=== PATIENT | female | born 1990 | race African-American/Black ===

== ENCOUNTER 2023-02-19 07:57 | Day surgery (SDC) | payer BC ==
[~2023-02-19] VITALS: Ht 167.6 cm; Wt 164.3 kg
[2023-02-19 08:17] VITALS: BP 123/85; PULSE 81; TEMP 97.1
[2023-02-19] MEDS ORDERED: SAXENDA6 MG/ML SQ (08:28)
[2023-02-19] MEDS ORDERED: ELIQUIS 5MG PO (08:29)
[2023-02-19] MEDS ORDERED: PRILOSEC 20MG20 MG PO (08:29)
[2023-02-19 09:45] VITALS: BP 118/93; PULSE 82; TEMP 97.4
[2023-02-19 10:00] VITALS: BP 100/84; PULSE 77
[2023-02-19 10:15] VITALS: BP 110/76; PULSE 75
--- NOTE | 2023-02-19 12:00 | NUR ---
0945: PATIENT TO BAY 4 PER CART FROM ENDO SUITE. PATIENT AMBULATED FROM CART TO RECLINER X2 ASSIST. REPORT RECEIVED FROM ENDO NURSE. VS STABLE. BREATHING EVEN AND UNLABORED. PATIENT COMPLALINS OF UPPER ABDOMEN PAIN. ENDO NURSE EDUCATED PATIENT IT WAS GAS PAIN FROM THE PROCEDURE. PATIENT REQUESTING JUICE AND CRACKERS. RESTING IN THE RECLINER AT THIS TIME. MOM AT SIDE. CALL LIGHT IN REACH. 1000: VS REMAIN STABLE. PATIENT STATING ABDOMEN PAIN IS IMPROVING. PATIENT TOLERATING JUICE AND CRACKERS. NO FURTHER COMPLAINTS NOTED. RESTING IN RECLINER. MOM AT SIDE. CALL LIGHT IN REACH. 1015: DR. MARTIN IN TO SPEAK WITH PATIENT AT THIS TIME. VS REMAIN STABLE. PATIENT STATES UPPER ABDOMEN PAIN CONTINUES TO IMPROVE. RESTING IN RECLINER. CALL LIGHT IN REACH. 1025: DISCHARGE EDUCATION COMPLETED. PATIENT STATED UNDERSTANDING OF INSTRUCTIONS. DISCHARGE PAPERWORK GIVEN TO PATIENT. IV DC'D AT THIS TIME. PATIENT DENIES ANY ASSISTANCE WITH DRESSING. 1035: PATIENT AMBULATED TO WHEELCHAIR WITH STEADY GAIT. PATIENT OFF UNIT VIA WHEELCHAIR. PATIENT DISCHARGED TO HOME WITH MOM PER PERSONAL VEHICLE.
== END 2023-02-19 10:35 | disposition home or self-care (01) ==
LOC: SDCO 07:57
DX: K21.9 Gastro-esophageal reflux disease without esophagitis (principal); Z79.899 Other long term (current) drug therapy
CPT/HCPCS: J2704; J7120